=== PATIENT | female | born 1970 | race Caucasian/White ===

== ENCOUNTER 2017-08-21 10:12 | Day surgery (SDC) | payer BC, OTHER ==
[~2017-08-21 10:12] MED LIST: PROPOFOL INJ 200 MG/20 ML VIAL IV ONE
[2017-08-21 11:42] VITALS: BP 109/69
--- NOTE | 2017-08-21 11:47 | Operative Report ---
Operative Report DATE OF SURGERY: 08/21/17 Operative Report: The risks benefits and alternatives of the procedure explained to the patient in detail and informed consent is obtained.A GIF Olympus video scope was inserted into the patient's mouth and hypopharynx, the esophagus is identified intubated and insufflated, the scope was then advanced through the esophagus stomach and duodenum ,retroflexion maneuver is done, the esophagus stomach and first and second portions of the duodenum examined PREOPERATIVE DIAGNOSIS: Dysphagia POSTOPERATIVE DIAGNOSIS: Schatzki's ring that is broken. Possible eosinophilic esophagitis. Gastritis status post biopsy. Duodenitis. Hiatal hernia OPERATION: EGD with biopsy SURGEON: SUSIE WOODWARD ANESTHESIA: LMAC TISSUE REMOVED OR ALTERED: As noted above. COMPLICATIONS: None. ESTIMATED BLOOD LOSS: None. INTRAOPERATIVE FINDINGS: As noted above. PROCEDURE: Patient tolerated procedure well. No immediate postprocedure complications are noted. Patient discharged in good condition. Discharge date 08/21/2017. Discharge diet: Regular. Discharge activity: Regular. 2-3 week follow-up to discuss findings. Patient's instructed to call the office or proceed to the emergency room should there be any further problems or questions. We will await pathology.
== END 2017-08-21 11:24 | disposition home or self-care (01) ==
LOC: END 10:12
PROVIDERS: ATTEND Internal Medicine Gastroenterology
DX: K22.2 Esophageal obstruction (principal); K29.50 Unspecified chronic gastritis without bleeding; K29.80 Duodenitis without bleeding; K44.9 Diaphragmatic hernia without obstruction or gangrene; G43.909 Migraine, unspecified, not intractable, without status migrainosus; Z87.891 Personal history of nicotine dependence; Z79.899 Other long term (current) drug therapy
CPT/HCPCS: 43239; 88342 ×2; 88305 ×2; J2704; 731